=== PATIENT | male | born 1980 | race Caucasian/White ===

== ENCOUNTER 2022-10-03 06:01 | Emergency (ER) | payer MEDICAID ==
[~2022-10-03] VITALS: Ht 185.4 cm; Wt 106.8 kg
[2022-10-03 06:19] VITALS: BP 140/85
[2022-10-03] MEDS ORDERED: ketorolac trometh. 30mg/ml inj. IM ONE (07:45)
[2022-10-03] MEDS ORDERED: ORPH100T4 PO (07:59)
[2022-10-03] MEDS ORDERED: IBUP-1986 PO (07:59)
== END 2022-10-03 08:05 | disposition home or self-care (01) ==
LOC: ER 06:03
DX: S39.012A Strain of muscle, fascia and tendon of lower back, initial encounter (principal); X58.XXXA Exposure to other specified factors, initial encounter; Y93.89 Activity, other specified; Y92.89 Other specified places as the place of occurrence of the external cause; Y99.8 Other external cause status
CPT/HCPCS: 96372; 99283; J1885

== ENCOUNTER 2022-11-17 19:37 | Emergency (ER) | payer SELFPAY ==
[~2022-11-17] VITALS: Ht 185.4 cm; Wt 102.3 kg
[~2022-11-17 19:37] MED LIST: IBUP-1986 PO; ORPH100T4 PO
--- NOTE | 2022-11-17 20:02 | NUR ---
[facility] has been notified.
[2022-11-17] MEDS ORDERED: morphine 4 MG/ML inj SYRINge IV ONE (20:35)
[2022-11-17] MEDS ORDERED: normal saline 1000ml 1,000 ML IV ONE (20:35)
[2022-11-17] MEDS ORDERED: ondansetron/PF 4mg/2ml inj IV ONE ×2 (20:35→20:40)
[2022-11-17] MEDS ORDERED: TETanus/Pertussis (Acell)/Diphther VAC/PF (Tdap-Adult) 0.5ml syringe IMVAC ONE (20:35)
[2022-11-17 21:48] LABS: BASOPHILS % (AUTO) 0.3 % (0-1); EOSINOPHILS # (AUTO) 0.2 X10'3 (0-0.9); EOSINOPHILS % (AUTO) 1.6 % (0-6); HEMATOCRIT 47.4 % (42.0-52.0); HEMOGLOBIN 15.7 g/dl (14.0-17.9); LYMPHOCYTES # (AUTO) 1.8 X10'3 (1.1-4.8); LYMPHOCYTES % (AUTO) 13.2 % (21-51); MEAN CORPUSCULAR HEMOGLOBIN 32.2 PG (27.0-31.0); MEAN CORPUSCULAR HGB CONC 33.1 g/dL (33.0-36.5); MEAN CORPUSCULAR VOLUME 97.4 FL (78-98); MEAN PLATELET VOLUME 9.1 FL (7.4-10.4); MONOCYTES # (AUTO) 0.7 X10'3 (0-0.9); MONOCYTES % (AUTO) 5.2 % (2-12); NEUTROPHILS # (AUTO) 10.9 X10'3 (1.8-7.7); NEUTROPHILS % (AUTO) 79.7 % (42-75); PLATELET COUNT 220 X10'3 (140-440); RED BLOOD COUNT 4.87 X10'6 (4.70-6.10); RED CELL DISTRIBUTION WIDTH 14.7 % (11.5-14.5); WHITE BLOOD COUNT 13.7 X10'3 (4.5-11.0)
[2022-11-17 21:52] LABS: APTT 29 SECONDS (22-32)
[2022-11-17] MEDS ORDERED: ceFAZolin/D5W- 1GM premix 50 ML IV ONE (21:55)
[2022-11-17 22:00] LABS: ALANINE AMINOTRANSFERASE 18 U/L (12-78); ALBUMIN 3.4 G/DL (3.4-5.0); ALKALINE PHOSPHATASE 56 IU/L (46-116); ANION GAP 10 (8-16); ASPARTATE AMINO TRANSFERASE 32 U/L (10-37); BILIRUBIN,TOTAL 0.2 MG/DL (0.1-1.0); BLOOD UREA NITROGEN 7 MG/DL (7-18); BUN/CREATININE RATIO 7.6 (10.0-20.0); CALCIUM 8.2 MG/DL (8.5-10.1); CHLORIDE 107 MMOL/L (99-107); CREATININE 0.92 MG/DL (0.60-1.10); GLUCOSE 101 MG/DL (70-104); POTASSIUM 3.3 MMOL/L (3.5-5.1); SODIUM 144 MMOL/L (135-145); TOTAL CARBON DIOXIDE 26.7 MMOL/L (24-32); TOTAL PROTEIN 6.8 G/DL (6.4-8.2); eGFR 89 ML/MIN
[2022-11-17 22:07] LABS: CREATINE KINASE 142 U/L (39-308); ETHANOL 0.219 GM/DL (0.0-0.010); LIPASE 137 U/L (73-393)
[2022-11-18] MEDS ORDERED: ceFAZolin/D5W- 1GM premix 50 ML IV ONE
[2022-11-18 01:00] VITALS: BP 144/78
== END 2022-11-18 06:15 | disposition short-term general hospital (02) ==
LOC: ER 19:37
DX: S00.12XA Contusion of left eyelid and periocular area, initial encounter (principal); S00.11XA Contusion of right eyelid and periocular area, initial encounter; S60.418A Abrasion of other finger, initial encounter; Z88.5 Allergy status to narcotic agent; Z88.8 Allergy status to other drugs, medicaments and biological substances; Y04.8XXA Assault by other bodily force, initial encounter; Y93.89 Activity, other specified; Y92.89 Other specified places as the place of occurrence of the external cause; Y99.8 Other external cause status
CPT/HCPCS: 36415; 70450; 70486; 71045; 72125; 80053; 80320; 82550; 83690; 84484; 85025; 85610; 85730; 86885; 86900; 86901; 90471; 90715; 93005; 96365; 96375; 99285; J0690; J2270; J2405; J7030